=== PATIENT | male | born 1980 | race Caucasian/White ===

== ENCOUNTER 2022-05-27 12:50 | Outpatient (CLI) | payer OTHER | END 2022-05-27 23:59 | disposition home or self-care (01) | LOC: RAD 12:50 | PROVIDERS: ATTEND Chiropractor | DX: M17.12 Unilateral primary osteoarthritis, left knee (principal); M77.32 Calcaneal spur, left foot; M77.31 Calcaneal spur, right foot | CPT/HCPCS: 73030; 73120; 73564; 73610 ==

== ENCOUNTER 2022-07-16 13:17 | Outpatient (CLI) | payer OTHER | END 2022-07-16 23:59 | disposition home or self-care (01) | LOC: RAD 13:17 | DX: M51.86 Other intervertebral disc disorders, lumbar region (principal) | CPT/HCPCS: 72100 ==

== ENCOUNTER 2022-09-03 15:19 | Outpatient (CLI) | payer OTHER | END 2022-09-03 23:59 | disposition home or self-care (01) | LOC: RAD 15:19 | PROVIDERS: ATTEND Chiropractor | DX: M47.817 Spondylosis without myelopathy or radiculopathy, lumbosacral region (principal); M48.07 Spinal stenosis, lumbosacral region; M48.05 Spinal stenosis, thoracolumbar region; M51.86 Other intervertebral disc disorders, lumbar region; M41.86 Other forms of scoliosis, lumbar region; M25.78 Osteophyte, vertebrae | CPT/HCPCS: 72110 ==

== ENCOUNTER 2022-09-20 13:24 | Outpatient (CLI) | payer OTHER | END 2022-09-20 23:59 | disposition home or self-care (01) | LOC: RAD 13:24 | PROVIDERS: ATTEND Chiropractor | DX: M47.812 Spondylosis without myelopathy or radiculopathy, cervical region (principal); M50.30 Other cervical disc degeneration, unspecified cervical region; M48.02 Spinal stenosis, cervical region; M46.92 Unspecified inflammatory spondylopathy, cervical region | CPT/HCPCS: 72050 ==